=== PATIENT | female | born 2000 | race Two or more races ===

== ENCOUNTER 2023-01-02 15:03 | Emergency (ER) | payer OTHER ==
[~2023-01-02] VITALS: Ht 157.5 cm; Wt 90.7 kg
[2023-01-02 17:45] LABS: HEMATOCRIT 35.6 % (36.0-45.00); HEMOGLOBIN 11.8 g/dL (12.0-15.00); MEAN CELL VOLUME 70.6 fL (80.00-100.00); MEAN CORPUSCULAR HEMOGLOBIN 23.5 pg (27.00-32.0); MEAN CORPUSCULAR HGB CONC 33.2 g/dl (32.0-36.0); PLATELET COUNT 320 K/uL (150-450); RED BLOOD COUNT 5.04 M/uL (4.00-6.00); RED CELL DISTRIBUTION WIDTH 16.1 % (11.5-14.5)
[2023-01-02 17:58] LABS: INR 0.98; PARTIAL THROMBOPLASTIN TIME 28.7 SECONDS (22.0-34.0); PROTHROMBIN TIME 10.3 SECONDS (9.0-11.5)
[2023-01-02 17:59] LABS: CALCIUM 8.8 mg/dL (8.5-10.1); CREATININE SERUM 0.6 mg/dL (0.55-1.02); GFR 125.01; POTASSIUM 3.42 mEq/L (3.5-5.1)
[2023-01-02 18:10] LABS: URINE APPEARANCE Clear; URINE BILIRRUBIN Negative (NEGATIVE); URINE BLOOD Trace; URINE COLOR Yellow; URINE GLUCOSE Negative (NEGATIVE); URINE LEUKOCYTE Large; URINE NITRATE Negative; URINE PROTEIN Negative (NEGATIVE)
[2023-01-02 18:14] LABS: URINE BACTERIA 1908.6 uL (0.0-1933); URINE EPITHELIAL CELLS 22.1 uL (0.0-38.8); URINE RBC 6.8 uL (0.0-20.8); URINE WBC 208.8 uL (0.0-23.2)
== END 2023-01-02 19:48 | disposition home or self-care (01) ==
LOC: ER 15:03
PROVIDERS: General Practice
DX: O26.891 Other specified pregnancy related conditions, first trimester (principal); M25.471 Effusion, right ankle; Z91.013 Allergy to seafood; Z3A.08 8 weeks gestation of pregnancy